=== PATIENT | male | born 1945 | race Caucasian/White ===

== ENCOUNTER 2024-03-15 13:44 | Outpatient (CLI) | payer OTHER, SELFPAY ==
--- NOTE | 2024-03-15 13:48 | USCV_ITS ---
Eric De La Cruz Age: 78 Gender: M : 1945 Exam Date: 03/15/2024 14:24 Ordering Phys: Edwin Callaway DO Technologist: KENNETH Exam Location: [facility] – [place] Indication: cca stenois Risk Factors: Previous Vascular Surgery: Right Brachial BP: / Left Brachial BP: / Right Left Velocity (cm/s) Spectral Plaque Velocity (cm/s) Spectral Plaque Syst/Diast Broadening Syst/Diast Broadening 59.50/ 15.40 Prox CCA 65.10 / 21.60 60.80/ 18.00 Mid CCA 56.40 / 19.40 55.50/ 18.00 Hetro Distal CCA 45.50 / 17.20 Hetro 45.00/ 14.00 Hetro Prox ICA 50.40 / 14.90 Hetro 79.70/ 26.90 Mid ICA 54.90 / 22.70 79.70/ 26.90 Distal ICA 41.40 / 17.90 66.90 ECA 71.70 1.40 ICA/CCA 1.20 Antegrade Vertebral Antegrade 37.00/ 8.00 cm/s 47.00/ 15.00 cm/s Tri Subclavian Tri 100.0 97.00 0 CONCLUSIONS Right ICA stenosis <50%. Moderate atheromatous plaque right carotid bulb/ICA Left ICA stenosis <50%. Moderate atheromatous plaque left carotid bulb/ICA. Scattered plaque in both CCA's Intimal thickening in the common carotid arteries and internal carotid arteries bilaterally. Normal antegrade Doppler flow noted in the right vertebral artery. Normal antegrade Doppler flow noted in the left vertebral artery. Ok Herrera MD (Electronically Signed) Final Date: 15 March 2024 16:14 S
== END 2024-03-15 13:45 | disposition home or self-care (01) ==
LOC: RAD 13:45
PROVIDERS: PCP Emergency Medicine Emergency Medical Services; Visit Provider Emergency Medicine Emergency Medical Services
DX: I65.23 Occlusion and stenosis of bilateral carotid arteries (principal)
CPT/HCPCS: 93880

== ENCOUNTER → 2024-12-12 13:00 | Outpatient (BNVA) | payer OTHER, SELFPAY | PROVIDERS: PCP Emergency Medicine Emergency Medical Services; Referring Provider Nurse Practitioner Family; Visit Provider Nurse Practitioner Family | DX: L81.4 Other melanin hyperpigmentation (principal); L57.8 Other skin changes due to chronic exposure to nonionizing radiation; Z08 Encounter for follow-up examination after completed treatment for malignant neoplasm; Z85.828 Personal history of other malignant neoplasm of skin; D48.5 Neoplasm of uncertain behavior of skin; L57.0 Actinic keratosis | CPT/HCPCS: 11102; 17000; 99203 ==

== ENCOUNTER 2025-02-06 08:09 | Outpatient (CLI) | payer OTHER, SELFPAY ==
[2025-02-06 08:11] VITALS: BMI 20.3
--- NOTE | 2025-02-06 08:11 | ECG_ITS ---
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 Interpretive Statements LEXISCAN: Procedure: At the baseline, the blood pressure was 160/94 mmHg with a heart rate of 77bpm. The electrocardiogram showed normal sinus rhythm, right bundle branch block with normal ST and T's. The Lexiscan was infused over a period of 20 seconds. A total of 0.4 mg of Lexiscan was infused. The stress phase was continued for a total of 5 minutes. Heart rate was at the end of stress phase was 79 bpm and a blood pressure of 155/92 mmHg. The EKG at the peak infusion revealed normal sinus rhythm with no significant ST-T wave changes. Sestamibi was injected 20 seconds after the Lexiscan infusion. Blood pressure at the end of recovery phase was 144/86 mmHg with a heart rate of 78 bpm. Conclusion: 1. Normal EKG response to Lexiscan infusion 2. No Lexiscan induced chest pain or cardiac arrhythmia. 3. Normal blood pressure and heart rate response. 4. Sestamibi/sestamibi perfusion scan pending; see separate report. Electronically Signed On 02-18-2025 02:11:57 CDT by Steve Beltran M.D. [email or web address]
--- NOTE | 2025-02-06 08:12 | NMCV_ITS ---
NM celso perf SPECT r/s* [id number] Eric De La Cruz Age: 79 Gender: M : 1945 Exam Date: 02/06/2025 08:12 Ordering Phys: Steve Beltran M.D ([email or web address]) Technologist: ANASTASIIA Klein Exam Location: [facility] Indications: cp STRESS TEST Please see separate stress test report in [facility] for full findings IMAGE PROTOCOL Rest/Stress 1 isc Radiopharmaceutical Dose (mCi) Administration Site Administered by Rest: Tc-99m 11 IV Courtney Servin METAL DRAWER Sestamibi Stress:Tc-99m 33 IV Courtney Servin, METAL DRAWER Sestamibi Rest: 06-Feb-2025 60 Discovery 630 Stress: 06-Feb-2025 15 Discovery 630 SPECT RESULTS Technical Quality: Good Raw Data Analysis: Normal Image Corrections: No attenuation or motion correction applied Summed Stress Score: 2 Summed Rest Score: 3 Summed Difference Score: 0 PERFUSION FINDINGS There is small sized area of fixed perfusion defect seen in apical wall. 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 FUNCTIONAL RESULTS (calculated via Gated SPECT) Stress Image LV EF (%): 27 Stress EDV (mL):161 TID: 0.99 Stress ESV (mL):117 FUNCTIONAL FINDINGS: LV systolic function is severely reduced with EF of 27% IMPRESSIONS 1. Abnormal myocardial perfusion imaging with small area of prior infarct seen in apical wall. No evidence of ischemia. 2. LV systolic function is severely reduced with EF of 27% Steve Beltran MD (Electronically Signed) Final Date: 07 February 2025 08:36 S
--- NOTE | 2025-02-06 08:44 | USCV_ITS ---
Eric De La Cruz Age: 79 Gender: M : 1945 Exam Date: 02/06/2025 08:50 Ordering Phys: Steve Beltran M.D ([email or web address]) Technologist: EMELI [place] [facility] [place]: CP BP: 140 / 80 HR: 68 Rhythm: Sinus Technical Quality: Adequate MEASUREMENTS (Male / Female) Normal Values 2D ECHO LV Diastolic Diameter PLAX 5.1 cm 4.2 - 5.9 / 3.9 - 5.3 cm IVS Diastolic Thickness 1.3 cm 0.6 - 1.0 / 0.6 - 0.9 cm IVS Systolic Thickness 1.4 cm LVPW Diastolic Thickness 1.2 cm 0.6 - 1.0 / 0.6 - 0.9 cm LVPW Systolic Thickness 1.3 cm LVOT Diameter 2.0 cm LV Ejection Fraction 2D Teich 46.0 % LV Ejection Fraction MOD 4C 51.9 % LV Ejection Fraction MOD 2C 46.9 % LV Ejection Fraction 2C AL 47.6 % LA Diameter 2.9 cm RA Systolic Volume 4C AL 29.4 ml RA Systolic Volume 4C MOD 28.2 ml LA Sys Volume AL 50.4 cm cubed LA Sys Volume Index AL 28.7 cm cubed/m squared Aorta at Sinotubular Diameter 2.2 cm IVC Diameter 1.1 cm M-MODE LA Ao Ratio MM 1.4 AV Cusp Separation MM 1.2 cm DOPPLER AV Peak Velocity 125.0 cm/s LVOT Peak Velocity 97.0 cm/s AV Area Cont Eq vti 2.4 cm squared AV Area Cont Eq pk 2.4 cm squared MV Peak Velocity 92.0 cm/s MV Area PHT 4.6 cm squared Mitral E to A Ratio 1.3 TR Peak Velocity 103.0 cm/s TR Peak Gradient 4.2 mmHg TV Peak E Velocity 83.0 cm/s PV Peak Velocity 88.0 cm/s FINDINGS Left Ventricle Left ventricle is normal in size. LV systolic function is moderately reduced with EF of 35 to 40%. Moderate global hypokinesis. Right Ventricle Mildly hypokinetic Right Atrium Normal in size Left Atrium Normal in size Mitral Valve Structurally normal mitral valve. Mild mitral regurgitation. Aortic Valve Structurally normal aortic valve. No significant stenosis or regurgitation. Tricuspid Valve Insufficient TR jet to calculate RVSP. Pulmonic Valve Not well visualized Pericardium Normal Aorta Normal in size IVC Appears to be normal CONCLUSIONS LV systolic function is moderately reduced with EF of 35 to 40%. Mildly hypokinetic RV. Mild mitral regurgitation. No comparison studies are available. Steve Beltran MD (Electronically Signed) Final Date: 13 February 2025 15:27 S
[2025-02-06] MEDS: regadenoson 0.4 Mg/5 ml Syringe IVP (09:48)
[2025-02-06 09:59] VITALS: BP 144/88; PULSE 78
== END 2025-02-06 08:10 | disposition home or self-care (01) ==
PROVIDERS: PCP Nurse Practitioner Family; Visit Provider Internal Medicine
DX: R07.9 Chest pain, unspecified (principal); R06.02 Shortness of breath; R93.1 Abnormal findings on diagnostic imaging of heart and coronary circulation; I34.0 Nonrheumatic mitral (valve) insufficiency
CPT/HCPCS: 36415; 78452; 93017; 93306; 96374; A9500; J2785

== ENCOUNTER → 2025-02-13 14:13 | Outpatient (BNVA) | payer OTHER, SELFPAY | PROVIDERS: PCP Nurse Practitioner Family; Visit Provider Internal Medicine | DX: R06.09 Other forms of dyspnea (principal); I51.9 Heart disease, unspecified; Z87.891 Personal history of nicotine dependence | CPT/HCPCS: 36415; 80048; 85025; 85610; 99214 ==

== ENCOUNTER 2025-02-28 05:58 | Outpatient (CLI) | payer OTHER, SELFPAY ==
[2025-02-28] VITALS (27 sets, daily range): BP systolic 97–151; BP diastolic 62–96; PULSE 51–78; RESP 12–20; TEMP 36.7; O2SAT 94–98; BMI 20.7
--- NOTE | 2025-02-28 06:04 | XACV_ITS ---
Exam Room: 2 Ht: 175 cm Wt: 64 kg BSA: 1.75 m2 Gender: Male : 1945 Any Known Allergies: No known allergies Exam Priority: Routine Procedure(s): Procedure Description: Diagnostic procedure Procedure Description: Left Heart Catheterization Procedure Description: Right Heart Catheterization Procedure Description: Left ventriculography Procedure Description: O2 saturation Procedure Description: Coronary Angiography Diagnostic Cath Status: Elective Diagnostic Findings * No significant disease noted in the Left Main, Left Anterior Descending, Right, or Circumflex coronary arteries. * Coronary angiography shows left dominance. Conclusions 1. No significant disease noted in the Left Main, Left Anterior Descending, Right, or Circumflex coronary arteries. 2. Non-ischemic cardiomyopathy. 3. Elevated right and left sided cardiac pressures. 4. Severe left ventricular systolic dysfunction. Ejection fraction of 25%. Recommendations * Guideline directed medical therapy for heart failure. * Diuresis as outpatient. * Cardiology follow up in 2 weeks. Diagnostic RX Recommendation: medical therapy and/or counseling Ventriculography Ejection Fraction: 25.0 % Pressures Phase:Rest AO : 126 / 78 ( 101 ) @ 9:01:00 AM 136 / 61 ( 90 ) @ 9:07:00 AM 126 / 66 ( 87 ) @ 9:07:00 AM LV : 138 / 6 / 20 @ 9:06:00 AM 135 / 5 / 24 @ 9:07:00 AM 133 / 4 / 24 @ 9:07:00 AM RV : 50 / 8 / 16 @ 8:43:00 AM PA : 50 / 23 ( 33 ) @ 8:42:00 AM RA : a wave = 15 v wave = 14 mean = 13 @ 8:44:00 AM PCW : a wave = 22 v wave = 22 mean = 19 @ 8:42:00 AM O2 Content Phase:Rest PA : O2 Content O2: 60.3 @ 9:07:00 AM Saturations Phase:Rest AO : 95 @ 9:01:00 AM PA : 60 @ 9:07:00 AM Cardiac Output Phase:Rest Kitty : 4 @ 8:19:51 AM Kitty Cardiac Index: 2 @ 8:19:51 AM Flow Phase:Rest Qp : 4 @ 8:19:51 AM Qs : 4 @ 8:19:51 AM Valves Phase:DefaultPhase AV : 0.0 @ 8:19:51 AM AV Mean Gradient: 0.0 @ 8:19:51 AM AV Flow: 647 @ 8:19:51 AM Clinical Evaluation EBL: 5mL-10mL Procedural Details Procedure Consent Obtained. Pre-Procedure Time Out. Identified patient by full name and date of as verbalized by the patient/guarantor. Does the consent match the physician's order: Yes. Accurate & Complete Informed Consent: Yes. Inpatient/Outpatient History & Physical on Chart: Yes. If H&P is completed, is and addenduem needed: No. Visualize and Verify Site with Patient/Guarantor: N/A. Relevant Radiology Images available: No. The risks, benefits, and alternatives of sedation and/or procedure were discussed by physician. The patient agrees to continue. Procedure started. [facility] Clinical Fraility Score: 5: Mildly Frail. 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 Chest Pain Symptom Assessment: Atypical Angina. Cardiovascular Instability: No. Correct patient, site and procedure confirmed by cath team. PERRLA. Strong, equal hand support engineer bilaterally. Lungs clear x 5 lobes. IV Site on Arrival: 20 gauge in the right anticubital for RHC procedure. IV Site on Arrival: 20 gauge in the left anticubital. IV Fluids: 0.9% NaCl at KVO. 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 Pre Procedural Pulses: right dorsalis pedis was 1+. Pre Procedural Pulses: bilateral posterior tibial was 1+. Pre Procedural Pulses: bilateral radial was 3+. Patient has Left AKA. Patient will be on room air for RHC procedure. right groin was prepped with chloroprep then draped in the usual sterile fashion. right radial was prepped with chloroprep then draped in the usual sterile fashion. right brachial was prepped with chloroprep then draped in the usual sterile fashion. Physician notified. Baseline sample Acquired. HR: 71 BPM. Patient's family in CPRU. Dr. Beltran will update a the completion of the procedure. Equipment: 6F - Radial. Cardiac Cath Pack. ACIST Manifold Kit Model BT 2000. Heparinized Saline (2 units/mL), 1000 mL bag. Physician arrived. Physician scrubbed in. Immediate Pre-Procedure Time Out. Correct Patient: Yes; Correct Procedure: Yes; Correct Site: Yes; Correct Patient Position: Yes; Correct Supplies: Yes; Dried Flammable Prep: Yes; Blood Products Available: N/A;. Microdilator wire in through the existing 20g PIV in the Right Brachial Vein. Lidocaine 1% infiltrated to the right brachial. [place] catheter inserted. Oximetry samples were obtained. Normal venous range: 60-85%. Normal arterial range: 95-100%. Pressure measurements obtained. [place] out. Lidocaine 1% infiltrated to the right radial. Arterial access obtained. Unable to thread wire. Wire out and Dr. Beltran holding manual pressure until TR band placed. Will abort radial access and move to femoral access. TR band placed on the right wrist. Hemostasis obtained. Lidocaine 1% infiltrated to the right groin. Arterial access obtained with micropuncture set. AO sat drawn and Marianela ROBBINS, called to run. A 5 pitcairn islander JL4 catheter in over the exchange J wire. Oxygen started at 2liters/min via nasal canula. Multiple views taken of left coronary artery. Catheter removed over the exchange J wire. A 5 pitcairn islander JR4 catheter in over the exchange J wire. Multiple views taken of right coronary artery. Catheter removed over the exchange J wire. A 5 pitcairn islander Angled Pig catheter in over the exchange J wire. EDP Sample taken: LV 138/6,20; HR: 64 BPM; SpO2: 96%. LV gram performed in [place] @ 10 mL/second for a total of 30 mL. EDP Sample taken: LV 135/5,24; HR: 57 BPM; SpO2: 98%. Pullback taken: LV 133/4,24; AO 136/61(90); Mean: 0mmHg, Peak to Peak: 0mmHg, SEP: 6sec/min; HR: 62 BPM; SpO2: 98%. Catheter removed over the exchange J wire. A Right femoral angiogram was performed to determine safe placement of closure device. A Mynx was successful obtaining hemostatsis at the Right Femoral artery insertion site. Lot #[id number]. Exp. . Mynx placed without complications. No signs or symptoms of hematoma noted. Sterile dressing applied per usual sterile fashion. Dr. Beltran scrubbed out. Post Procedure: Pulses reassessed and unchanged. PERRLA. Strong, equal hand support engineer bilaterally. No VTE prophylaxis required. Medication's Wasted: Lidocaine 1% = 5 mL. Medication's Wasted: Nitro = 50 mg. Medication's Wasted: Heparin = 6000 units. Medication's Wasted: Other = Fentnayl 50 mcg. Total IV fluids: 35 mL. 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 Complications: none. Estimated blood loss: 5mL-10mL. Responsiveness - Normal response to verbal stimuli; alert and oriented, PERRLA. Airway - Unaffected, no intervention required; spontaneous ventilation. Circulation: W/N/L, pulses unchanged. Nausea/Vomiting: No. Procedure completed. Patient transferred by bed to CPRU. Vital chart was stopped. Access Site Site: Right Brachial Vein Sheath Size: 6 Fr Hemostasis Success: Unsuccessful Site: Right Femoral artery Sheath Size: 6 Fr Hemostasis Method: Mynx Hemostasis Success: Successful Procedure Medications Start: 7:31 AM Stop: 7:31 AM Medication: Versed Amount: 1 mg Route: I.V. Start: 7:31 AM Stop: 7:31 AM Medication: Fentanyl Amount: 25 mcg Route: I.V. Start: 7:56 AM Stop: 7:56 AM Medication: Fentanyl Amount: 25 mcg Route: I.V. Start: 7:59 AM Stop: 7:59 AM Medication: Versed Amount: 1 mg Route: I.V. I, the attending physician, have reviewed and verified all procedure medications. Yes, all medications given per verbal order History/Risk Factors Hypertension: No Dyslipidemia: No Peripheral Arterial Disease (PAD): No Myocardial Infarction (SC): No Obesity: No Renal Disease: No Tobacco Use: Former Prior Interventions PCI: No CABG: No Valve Surgery: No Report Signatures Finalized by Steve Beltran MD on 03/18/2025 08:23 AM
[2025-02-28] MEDS: diphenhydrAMINE 50 mg Capsule PO (06:45)
--- NOTE | 2025-02-28 07:21 | P.HPUD_ITS ---
Surgery/Procedure H&P Update DATE OF PROCEDURE: February 28, 2025 DATE H&P PERFORMED: 03/16/25 H&P UPDATE INFORMATION: I have reviewed H&P completed within last 30 days, I have examined patient prior to procedure and No changes to prior documentation PREOP DIAGNOSIS: LV dysfunction PRIMARY INDICATION FOR PROCEDURE: LV dysfunction PLANNED PROCEDURE: Operation Date: 02/28/25 07:00 Proposed Procedures p Cardiac Catheterization - RLHC w/wo LV & Osorio(Bilateral) - Steve Beltran M.D Possible percutaneous coronary intervention PATIENT REASSESSED PRIOR TO SEDATION, WITH NO CHANGE NOTED: Yes PHYSICAL EXAM: alert, oriented x 3, clear to auscultation bilaterally and reg ular rate & rhythm AIRWAY EVAL/ANESTHESIA PLAN: normal airway, ASA III, Local Anesthesia, Risks, benefits & alternatives of sedation and/or procedure discussed and Patient agre es to continue as planned ADDITIONAL INFORMATION: Moderate sedation
[2025-02-28 08:10] LABS: Alveolar-Arterial Oxygen Gradi 3.4 mmHg (5-10); Blood Gas Operator Identificat GD; Blood Gas Sample Site Not specified; Blood Gas Sample Type Arterial; Carboxyhemoglobin 1.3 %THgb (0.4-20.1); HGB O2 Sat 93.5 % (95-100); Methemoglobin 0.1 % (0.4-1.5); Oxygen Device ROOM AIR; Total Hemoglobin 10.8 g/dL (14-18)
[2025-02-28 08:13] LABS: Arterial Blood Gas Hematocrit 20.4 % (42-52); Blood Gas Operator Identificat GD; Blood Gas Sample Site Not specified; Blood Gas Sample Type Venous; Carboxyhemoglobin 1.6 %THgb (0.4-20.1); HGB O2 Sat 59.2 % (95-100); Methemoglobin 0.3 % (0.4-1.5); Oxygen Device ROOM AIR; Total Hemoglobin 6.7 g/dL (14-18)
--- NOTE | 2025-02-28 08:31 | PM.PROC ---
Procedure Note: Date of procedure: 02/28/25 Pre-procedure diagnosis: LV dysfunction Post-procedure diagnosis: other (Non-ischemic cardiomyopathy) Procedure: Patent coronary arteries. Elevated right and left sided cardiac pressures Performing Provider: Steve Beltran IV fluids (mL): 10 Complications: None Condition: stable Disposition: same day Coding Level of Care Code Acute Code for [facility] Philadelphiafrannie
--- NOTE | 2025-02-28 13:15 | PC.NURSE ---
Ambulation Bedrest restriction over at 1240. Sat pt up 90 degree in bed before ambulating. Right groin asymptomatic. No signs of bleeding or hematoma noted. Dressing clean, dry, and intact. at 1300 left prosthetic leg put on and nurse assisted with ambulation around nursing unit. Right groin remains asymptomatic, no bleeding or hematoma.
== END 2025-02-28 14:26 | disposition home or self-care (01) ==
PROVIDERS: PCP Nurse Practitioner Family; Visit Provider Internal Medicine
DX: I42.8 Other cardiomyopathies (principal); Z79.82 Long term (current) use of aspirin; K21.9 Gastro-esophageal reflux disease without esophagitis; Z87.891 Personal history of nicotine dependence; I10 Essential (primary) hypertension
CPT/HCPCS: 36415; 82810; 93460; 99152; 99153; C1751; C1760; C1769; C1887; C1894; G0269; J1644; J2250; J3010; J3490; J7030; J9999; Q0163; Q9967

== ENCOUNTER → 2025-03-14 15:22 | Outpatient (BNVA) | payer OTHER, SELFPAY | PROVIDERS: PCP Nurse Practitioner Family; Visit Provider Nurse Practitioner Family | DX: I25.5 Ischemic cardiomyopathy (principal); I25.10 Atherosclerotic heart disease of native coronary artery without angina pectoris; I10 Essential (primary) hypertension; Z98.61 Coronary angioplasty status; Z87.891 Personal history of nicotine dependence | CPT/HCPCS: 99214 ==

== ENCOUNTER → 2025-09-13 14:50 | Outpatient (BNVA) | payer OTHER, SELFPAY | PROVIDERS: PCP Nurse Practitioner Family; Visit Provider Internal Medicine | DX: I42.8 Other cardiomyopathies (principal); Z87.891 Personal history of nicotine dependence; R06.09 Other forms of dyspnea | CPT/HCPCS: 99214 ==

== ENCOUNTER 2025-10-04 14:32 | Outpatient (CLI) | payer OTHER, SELFPAY ==
--- NOTE | 2025-10-04 15:00 | USCV_ITS ---
Eric De La Cruz Age: 80 Gender: M : 1945 Exam Date: 10/04/2025 15:16 Ordering Phys: Steve Beltran M.D ([email or web address]) Technologist: Exam Location: [facility] [place] Indication: pre op clearence BP: 124 / 70 HR: 56 Rhythm: Sinus Technical Quality: Adequate MEASUREMENTS (Male / Female) Normal Values 2D ECHO LV Diastolic Diameter PLAX 3.9 cm 4.2 - 5.9 / 3.9 - 5.3 cm IVS Diastolic Thickness 1.3 cm 0.6 - 1.0 / 0.6 - 0.9 cm IVS Systolic Thickness 1.7 cm LVPW Diastolic Thickness 1.4 cm 0.6 - 1.0 / 0.6 - 0.9 cm LVPW Systolic Thickness 1.8 cm LVOT Diameter 2.0 cm LV Ejection Fraction 2D Teich 41.0 % LV Ejection Fraction MOD 4C 69.1 % LV Ejection Fraction MOD 2C 61.9 % LV Ejection Fraction 2C AL 63.5 % LA Diameter 2.9 cm RA Systolic Volume 4C AL 24.1 ml RA Systolic Volume 4C MOD 22.2 ml Aorta at Sinotubular Diameter 2.9 cm IVC Diameter 1.3 cm M-MODE LA Ao Ratio MM 1.2 AV Cusp Separation MM 2.6 cm DOPPLER AV Peak Velocity 159.7 cm/s LVOT Peak Velocity 96.0 cm/s AV Area Cont Eq vti 2.3 cm squared AV Area Cont Eq pk 2.0 cm squared MV Area PHT 3.9 cm squared Mitral E to A Ratio 0.8 TR Peak Velocity 139.0 cm/s TR Peak Gradient 7.7 mmHg PV Peak Velocity 111.0 cm/s FINDINGS Left Ventricle Normal left ventricular size. LV systolic function is mildly reduced with EF of 40-45%. Mild global hypokinesis. Grade 1 diastolic dysfunction Right Ventricle Normal in size and function Right Atrium Normal in size Left Atrium Normal in size IA Septum Grossly normal Mitral Valve Structurally normal mitral valve. Mild mitral regurgitation Aortic Valve Structurally normal aortic valve. No significant stenosis regurgitation. Tricuspid Valve Insufficient TR jet to calculate RVSP Pulmonic Valve Not well visualized Pericardium Normal Aorta Normal in size IVC Appears to be normal CONCLUSIONS LV systolic function is mildly reduced with EF of 40-45% Grade 1 diastolic dysfunction Mild mitral regurgitation Compared to prior echocardiogram from 01/2025, LV systolic function has improved. Steve Beltran MD (Electronically Signed) Final Date: 14 October 2025 10:20 S
== END 2025-10-04 14:33 | disposition home or self-care (01) ==
LOC: RAD 14:34
PROVIDERS: PCP Nurse Practitioner Family; Visit Provider Internal Medicine
DX: I51.89 Other ill-defined heart diseases (principal); R06.09 Other forms of dyspnea; R93.1 Abnormal findings on diagnostic imaging of heart and coronary circulation; I34.0 Nonrheumatic mitral (valve) insufficiency
CPT/HCPCS: 93306